=== PATIENT | female | born 1955 | race Caucasian/White ===

== ENCOUNTER 2021-10-01 08:57 | Day surgery (SDC) | payer MEDICAID ==
[~2021-10-01] VITALS: Ht 160 cm; Wt 97.5 kg
[~2021-10-01 08:57] MED LIST: ACET250T3 PO; ALPR0.5T PO; ATOR10TA52 PO; BUTA-280 OR; BUTAPT PO; ELET40TA8 PO; GABA-339 PO; GABA300C10 PO; LEVO112T4 PO; LORA-35 PO; METO-289 PO; NORT25CA PO; OME20T PO; OMEP20TA PO; SEMA2INJ SC
[2021-10-01] MEDS ORDERED: LIDOCAINE 2%HCL (LOCAL ANESTH.) INJ 20ML MDV ONE (10:39)
[2021-10-01] MEDS ORDERED: IODIXANOL 320MG/ML 100ML BTL IV ONE (10:39)
[2021-10-01] MEDS ORDERED: fentaNYL CITRATE 100 MCG/2 ML VL ONE (10:40)
[2021-10-01] MEDS ORDERED: SODIUM CHL 0.9% 50 ML ONE (10:40)
[2021-10-01] MEDS ORDERED: MIDAZOLAM HCL 2MG/2ML 2ml VIAL (1mg/ml) ONE (10:40)
[2021-10-01] MEDS ORDERED: ANGIOMAX 250 MG VIAL IV ONE (10:40)
[2021-10-01] MEDS ORDERED: VERAPAMIL 2.5MG/ML INJ 2ML VIAL IV ONE (10:40)
[2021-10-01] MEDS ORDERED: HEPARIN SODIUM (PORCINE) 5000 UNITS/ML 1ML VIAL ONE (10:40)
[2021-10-01] MEDS ORDERED: diphenhdrAMINE HCL 50 MG/1 ML VL ONE (11:00)
[2021-10-01 11:20] VITALS: BP 116/78
[2021-10-01 11:36] VITALS: BP 120/78
[2021-10-01] MEDS ORDERED: OMEP-263 PO (11:39)
[2021-10-01 11:49] VITALS: BP 95/60
[2021-10-01] MEDS ORDERED: ACETAMINOPHEN 500 MG TAB PO PRN (12:00)
[2021-10-01 12:08] VITALS: BP 109/65
[2021-10-01] MEDS ORDERED: ACETAMINOPHEN 500 MG TAB PO ONE (12:38)
[2021-10-01 12:42] VITALS: BP 103/66
[2021-10-01 13:20] VITALS: BP 108/59
== END 2021-10-01 13:50 | disposition home or self-care (01) ==
LOC: CATH 08:57
PROVIDERS: ATTEND Internal Medicine
DX: R94.39 Abnormal result of other cardiovascular function study (principal); I25.118 Atherosclerotic heart disease of native coronary artery with other forms of angina pectoris; Z87.891 Personal history of nicotine dependence
CPT/HCPCS: 93458; C1769; C1887; C1894; J0583; J1200; J1644; J2250; J3010; Q9967; U0003; 99152